=== PATIENT | female | born 1975 | race Two or more races ===

== ENCOUNTER 2016-06-23 16:37 | Inpatient (IN) | payer BC, OTHER ==
[~2016-06-23] VITALS: Ht 157.5 cm; Wt 47.6 kg
[~2016-06-23 16:37] MED LIST: Baclofen PO; CYAN100096 PO; DICY20TA28 PO; DOCU-25 PO; DULO60CA45 PO; FLUT1DIS28 IH; Gabapentin PO; HYDROCORTISONE CREAM TOP; KETO5DRO29 EACHEYE; MAGN400C PO; NORE1TAB93 PO; PROP10TA29 PO; TACR30OI4 TP; TRAZ-147 PO; triamcinolone 0.1% TP
--- NOTE | 2016-06-23 17:25 | NUR ---
PRE ASSESSMENT: TRIAGED PT IN INTAKE OFFICE. SHE REPORTS DRINKING VODKA 1 PINT DAILY X 1 WEEK. BP 126/80 P 124 R 16 T 98.7. SHE PRESENTS WITHDRAWN WITH DEPRESSED MOOD. SHE DENIES S/I AND H/I. SHE STATES SHE CANNOT STOP DRINKING ON HER OWN AND NEEDS HELP.SHE REPORTS 1 SEIZURE IN MARCH 2016 FROM ETOH W/D. [facility] AT [facility] IN APRIL 2016. SHE REPORTS MEDICAL HX OF DEPRESSION,ECZEMA,ENDOMETRIOSIS AND ASTHMA. MEDICATIONS BROUGHT FROM HOME.UDS PROVIDED. TEST ORDERED.
[2016-06-23 17:45] VITALS: BP 126/80
[2016-06-23 18:04] LABS: *AMPHETAMINE, URINE NEGATIVE (NEGATIVE); *BARBITURATE, URINE NEGATIVE (NEGATIVE); *CANNABINOID, URINE NEGATIVE (NEGATIVE); *COCCAINE, URINE NEGATIVE (NEGATIVE); *OPIATE, URINE NEGATIVE (NEGATIVE); *PHENCYCLIDINE SCREEN,URINE NEGATIVE (NEGATIVE)
[2016-06-23] MEDS ORDERED: HYDROXYZINE PAMOATE 25 MG CAPSULE PO PRN (18:15)
[2016-06-23] MEDS ORDERED: diphenhydrAMINE 50 MG CAPSULE PO PRN (18:15)
[2016-06-23] MEDS ORDERED: ACETAMINOPHEN 325 MG TABLET PO PRN (18:15)
[2016-06-23] MEDS ORDERED: THIAMINE HCL 200 MG/2 ML VIAL IM ONE (18:15)
[2016-06-23] MEDS ORDERED: CLONIDINE HCL 0.1 MG TABLET PO PRN (18:15)
[2016-06-23] MEDS ORDERED: DICYCLOMINE HCL 20 MG TABLET PO PRN (18:15)
[2016-06-23] MEDS ORDERED: LORAZEPAM 2 MG/1 ML VIAL IM PRN (18:15)
[2016-06-23] MEDS ORDERED: MIRALAX 17 GM POWD.PACK PO PRN (18:15)
[2016-06-23] MEDS ORDERED: LOPERAMIDE HCL 2 MG CAPSULE PO PRN ×2 (18:15)
[2016-06-23] MEDS ORDERED: MAG HYDROX/AL HYDROX/SIMETH 30 ML LIQUID UDC PO PRN (18:15)
[2016-06-23] MEDS ORDERED: MAGNESIUM HYDROXIDE 30 ML LIQUID UDC PO PRN (18:15)
[2016-06-23] MEDS ORDERED: LORAZEPAM 1 MG TABLET PO PRN ×2 (18:15)
[2016-06-23] MEDS ORDERED: ONDANSETRON 4 MG/2 ML VIAL IM PRN (18:15)
[2016-06-23 18:53] LABS: *URINE HCG, QUAL NEGATIVE (NEGATIVE)
[2016-06-23] MEDS ORDERED: PATIENT MAY USE OWN MED- MD OK TOP PRN (19:00)
[2016-06-23] MEDS ORDERED: LORAZEPAM 1 MG TABLET PO ONE (19:00)
[2016-06-23] MEDS ORDERED: DOCUSATE SODIUM 100 MG CAPSULE PO PRN (19:00)
[2016-06-23] MEDS ORDERED: PATIENT MAY USE OWN MED- MD OK EACHEYE PRN (19:00)
--- NOTE | 2016-06-23 19:20 | NUR ---
ONE TIME ATIVAN GIVEN PER MD. RUSS 8. WILL ENDORSE REASSESSMENT TO NIGHT NURSE.
[2016-06-23 20:00] VITALS: BP 137/88
--- NOTE | 2016-06-23 20:20 | NUR ---
ONE TIME ATIVAN REASSESSMENT Pt reports Ativan somewhat effective. Pt still observed to be anxious. CIWA:7. Breathing even and unlabored, safety measures in place. Will monitor.
[2016-06-23 21:05] LABS: BASOPHILS % (AUTO) 0.5 % (0.0-2.0); EOSINOPHILS # (AUTO) 0.2 K/uL (0.0-0.7); HEMATOCRIT 39.9 % (37-47); HEMOGLOBIN 13.4 G/DL (12.0-16.0); LYMPHOCYTES # (AUTO) 2.2 K/UL (0.8-4.8); LYMPHOCYTES % (AUTO) 27.3 % (20.5-51.5); MEAN CORPUSCULAR HEMOGLOBIN 30.1 UUG (27.0-31.0); MEAN CORPUSCULAR HGB CONC 34 g/dL (32.0-37.0); MEAN CORPUSCULAR VOLUME 89.9 FL (81.0-99.0); MONOCYTES # (AUTO) 0.4 K/UL (0.1-1.30); MONOCYTES % (AUTO) 5.1 % (0.0-11.0); NEUTROPHILS # (AUTO) 5.4 K/UL (1.8-8.9); NEUTROPHILS % (AUTO) 65.1 % (38.5-71.5); PLATELET COUNT (AUTO) 439 K/UL (150-450); RED BLOOD CELL COUNT(AUTO) 4.44 MIL/UL (4.2-5.4); RED CELL DISTRIBUTION WIDTH 12.6 % (11.5-14.5); WHITE BLOOD COUNT (AUTO) 8.2 K/UL (4.0-11.2)
[2016-06-23 21:25] LABS: ETHANOL 102 MG/DL (0-0)
[2016-06-23 21:33] LABS: ALANINE AMINOTRANSFERASE 19 U/L (14-59); ALBUMIN 3.9 g/dL (3.4-5.0); ALKALINE PHOSPHATASE 92 U/L (50-136); AMYLASE 63 U/L (25-115); ASPARTATE AMINOTRANSFERASE 24 U/L (15-37); BILIRUBIN,TOTAL 0.2 mg/dL (0.2-1.0); CALCIUM 9.2 mg/dL (8.5-10.1); CARBON DIOXIDE 26 mmol/L (21-32); CHLORIDE 99 mmol/L (98-107); GFR > 130 mL/min (>60); GLUCOSE 102 mg/dL (74-106); LIPASE 321 U/L (73-393); MAGNESIUM 2.1 mg/dL (1.8-2.4); POTASSIUM 4.3 mmol/L (3.5-5.1); SODIUM SERUM 139 mmol/L (136-145); UREA NITROGEN, BLOOD 13 mg/dL (7-18)
[2016-06-23 21:36] LABS: CREATININE 0.5 mg/dL (0.6-1.3)
[2016-06-23] MEDS ORDERED: LORAZEPAM 1 MG TABLET ONE (21:41)
[2016-06-23] MEDS: IBUPROFEN 400 MG TABLET PO PRN (21:41)
--- NOTE | 2016-06-23 21:41 | NUR ---
PRN MOTRIN Pt complains of headache 04/20. PRN Motrin administered as ordered. Safety measures in place. Will monitor effectiveness.
[2016-06-23 21:44] LABS: HIV-1 p24 ANTIGEN NON REACTIVE (NONREACTIVE); HIV-1/2 ANTIBODY NON REACTIVE (NONREACTIVE)
[2016-06-23] MEDS ORDERED: LORAZEPAM 1 MG TABLET PO SCH (22:00)
--- NOTE | 2016-06-23 22:41 | NUR ---
PRN MOTRIN REASSESSMENT PRN Motrin effective, pt reports that headache decreased to 2/10. Breathing even and unlabored, safety measures in place. Will monitor.
[2016-06-23] MEDS ORDERED: PROPRANOLOL HCL 20 MG TABLET PO ONE (23:45)
[2016-06-23] MEDS ORDERED: TRAZODONE 50 MG TABLET PO PRN (23:55)
[2016-06-24] VITALS (7 sets, daily range): BP systolic 117–141; BP diastolic 79–86
--- NOTE | 2016-06-24 00:04 | NUR ---
PRN TRAZODONE Pt complains of inability to sleep. PRN Trazodone administered as ordered. Respirations 16, breathing even and unlabored, safety measures in place. Will monitor effectiveness.
--- NOTE | 2016-06-24 00:04 | NUR ---
ONE TIME INDERAL One time order of Inderal administered per MD order. Pt's BP: 117/79 HR: 120. Will monitor and reassess.
[2016-06-24] MEDS ORDERED: PROPRANOLOL HCL 20 MG TABLET ONE (00:07)
--- NOTE | 2016-06-24 01:04 | NUR ---
ONE TIME INDERAL REASSESSMENT One time order effective. Pt's BP: 128/80 HR: 97. Breathing even and unlabored, safety measures in place. Will continue to monitor.
--- NOTE | 2016-06-24 01:04 | NUR ---
PRN TRAZODONE REASSESSMENT PRN Trazodone effective. Pt lying in bed with eyes closed noted to be asleep. Respirations 16, breathing is even and unlabored. Safety measures in place. Will continue to monitor.
--- NOTE | 2016-06-24 04:00 | NUR ---
CIWA DEFERRED CIWA deferred d/t order is Q4H while awake. Pt lying in bed with eyes closed noted to be asleep. Respirations 16. Breathing is even and unlabored. Safety measures in place. Will continue to monitor.
[2016-06-24] MEDS ORDERED: THIA100T13 GT (04:13)
[2016-06-24] MEDS ORDERED: LORA10TA50 PO (04:13)
[2016-06-24] MEDS ORDERED: PROBIOTICS (04:13)
[2016-06-24] MEDS ORDERED: AZIT250T6 PO (04:13)
[2016-06-24] MEDS ORDERED: TURM1CAP PO (04:13)
[2016-06-24] MEDS ORDERED: [UNRECOGNIZED DRUG - SUPPLY] (04:13)
[2016-06-24] MEDS ORDERED: IBUP-1482 PO (04:13)
[2016-06-24] MEDS ORDERED: MAGN500T17 PO (04:13)
[2016-06-24] MEDS ORDERED: [UNRECOGNIZED DRUG - SUPPLY] (04:13)
[2016-06-24] MEDS ORDERED: [UNRECOGNIZED DRUG - OTHER] (04:13)
[2016-06-24] MEDS ORDERED: BENZ9GEL2 MM (04:13)
[2016-06-24] MEDS ORDERED: CETI-102 PO (04:13)
--- NOTE | 2016-06-24 07:25 | NUR ---
END OF SHIFT Pt is a 40 year old female admitted on 06/23/16 for ETOH dependency. Pt is full code with NKA. At 2141 pt received PRN Motrin for headeache 04/20, and at 0004 she received PRN Trazodone. She slept a total of 4 hrs, Intake: 1479mL, void: x3, BM: 0. Pt remains alert and oriented x4, breathing is even and unlabored. Safety measures in place. Endorsed to oncoming shift.
--- NOTE | 2016-06-24 07:40 | NUR ---
START OF SHIFT Rcvd endorsement from night nurse, client is in room, she is A/Ox 4, she presents with anxious, irritable mood, fine tremors, she denies any WRAY, N/V/D at this time. She denies any SI/HI. Encouraged increased fluids as tolerated, to facilitating detox process. Encourage group attendance to improve coping skills. Client is a 40 year old female admitted on 06/23/16 for ETOH withdrawal. Full code, NKA, Regular diet. At 2141 client received PRN Motrin for headache 04/20; effective. 0004 she received PRN Trazodone for inability to sleep, she slept a total of 4 hrs. Last CIWA 6 @ 1999. She has history of induced seizure withdrawal (Mar 2016). Seizure precautions. Side rails x 2 up/padded. Bed in lowest/locked position. Call light within reach. Will continue plan of care.
--- NOTE | 2016-06-24 08:55 | NUR ---
NURSING NOTES Client reports headache 04/20 at frontal area, superficial. She refused any PRN meds at this time. Ludwig stated' " Addendum: 06/24/16 at 1027 by CHANTAL DENG RN She stated' "I will feel better, after I get my taper medication, but thank you." Will continue to monitor.
[2016-06-24] MEDS ORDERED: TUBERCULIN,PURIF.PROT.DERIV. 5 TU/0.1 ML TEST ID ONE (09:00)
[2016-06-24] MEDS: LORAZEPAM 1 MG TABLET PO SCH ×4 (09:17→20:27)
[2016-06-24] MEDS: LACTOBACILLUS RHAMNOSUS GG 1 EACH CAPSULE PO SCH ×2 (09:17→20:28)
[2016-06-24] MEDS: MULTIVITAMINS,THERAPEUTIC TABLET PO SCH (09:18)
[2016-06-24] MEDS: THIAMINE HCL 100 MG TABLET PO SCH (09:18)
[2016-06-24] MEDS: FOLIC ACID 1 MG TABLET PO SCH (09:18)
[2016-06-24] MEDS: CYANOCOBALAMIN 1,000 MCG TABLET PO SCH (09:18)
--- NOTE | 2016-06-24 09:19 | NUR ---
TB TEST ADMINISTERED TO L F/A, CLIENT TOLERATED WELL.
[2016-06-24] MEDS: PROPRANOLOL HCL 10 MG TABLET PO SCH ×2 (09:22→21:21)
[2016-06-24] MEDS: PATIENT MAY USE OWN MED- MD OK PO SCH (09:50)
[2016-06-24] MEDS: PATIENT MAY USE OWN MED- MD OK INH SCH (09:51)
[2016-06-24] MEDS: ONDANSETRON ODT 4 MG TAB.RAPDIS SL PRN (10:00)
--- NOTE | 2016-06-24 10:00 | NUR ---
PRN Zofran 4mg SL Client reports continuous nausea, no episodes of emesis. Zofran 4mg SL administered. Saltine crackers and jasvir barry offered. Will continue to monitor. Call light within reach.
--- NOTE | 2016-06-24 11:00 | NUR ---
Reassessment PRN Zofran 4mg SL Client reports relief from nausea, no episodes of emesis. Zofran 4mg effective. Call light within reach.
--- NOTE | 2016-06-24 11:10 | NUR ---
MD Lombardi notified the following test ECG for tachycardia Results Normal sinus rhythm Possible Left Atrial enlargement Left axia deviation RSR or QR pattern in V1 suggest right ventricular conduction delay. Abnormal ECG. NNO at this time, client is in bed resting.
[2016-06-24] MEDS ORDERED: FLUTICASONE PROP NASAL SPRAY 16 GM BOTTLE NS SCH (11:45)
[2016-06-24] MEDS: FLONASE NS SCH (13:09)
--- NOTE | 2016-06-24 19:15 | NUR ---
START OF SHIFT Received 40 year old female patient admitted on 06/23/16 for ETOH dependency. Pt is full code with NKA. She reports a PMHx of asthma, eczema, depression, endometriosis, and dissociative disorder. She reports drinking 1 pint of vodka daily for 1 week. Last dose was on 06/23/16. Per endorsement, she received PRN Zofran. Pt is alert and oriented x4. Breathing is even and unlabored. Pt safe with bed locked in lowest position, side rails up x2 and call light within reach. Will continue to monitor.
--- NOTE | 2016-06-24 19:34 | NUR ---
END OF SHIFT Endorsed to incoming nurse, client is a 40 year old female admitted on 06/23/16 for ETOH withdrawal. Pt is full code with NKA. PRN Zofran for nausea, noted effective. Adequate intake and output. Swetha is compliant with 2/3 of group therapy.Client remains alert and oriented x4, breathing is even and unlabored. Safety measures in place. Endorsed to oncoming shift.
[2016-06-24] MEDS: CETIRIZINE HCL 10 MG TABLET PO SCH (20:28)
[2016-06-24] MEDS ORDERED: THIAMINE HCL 200 MG/2 ML VIAL IM ONE (21:00)
[2016-06-24] MEDS: TRAZODONE 100 MG TABLET PO SCH (21:21)
[2016-06-24] MEDS: DULOXETINE 60 MG CAPSULE.DR PO SCH (21:21)
[2016-06-25] VITALS: BP 129/87
[2016-06-25] MEDS: IBUPROFEN 400 MG TABLET PO PRN ×3 (01:57→15:52)
--- NOTE | 2016-06-25 01:57 | NUR ---
PRN MOTRIN Pt complains of headache 08/20. PRN Motrin administered as ordered. Breathing even and unlabored, respirations 16. Safety measures in place. Will monitor effectiveness.
--- NOTE | 2016-06-25 02:57 | NUR ---
PRN MOTRIN REASSESSMENT PRN Motrin effective. Pt lying in bed with eyes closed ntoed to be asleep. Respirations 16, breathing even and unlabored. No facial grimacing noted. Safety measures in place. Will continue to monitor.
[2016-06-25 04:00] VITALS: BP 125/83
--- NOTE | 2016-06-25 07:14 | NUR ---
END OF SHIFT Pt is a 40 year old female patient admitted on 06/23/16 for ETOH dependency. Pt is full code with NKA. She reports a PMHx of asthma, eczema, depression, endometriosis, and dissociative disorder. At 0157 pt received PRN Motrin d/t headache 06/20. Pt slept a total of 8 hrs, Intake: 800 mL, Void: x1, BM:0. CIWA: 7. Pt remains alert and oriented x4. Breathing is even and unlabored. Pt safe with bed locked in lowest position, side rails up x2 and call light within reach. Will endorse to oncoming shift.
--- NOTE | 2016-06-25 07:25 | NUR ---
Start Of Shift Patient Received from overnight babysitter nurse. Pt is a 40 year old female patient admitted for ETOH dependency. Pt is full code regular diet on fall and seizure precautions denies any food or drug allergies. Pt continues the 5 day Ativan taper and tolerating well. She reports a PMHx of asthma, eczema, depression, endometriosis, and dissociative disorder. Pt received PRN Motrin for a headache which was effective per overnight babysitter nurse. Pt slept a total of 8 hrs last night. Pt stated that she was not able to sleep well last night and that she was tossing and turning pt encouraged fluids to facilitate with detox treatment. Her Last CIWA: 7 taken at 0400. All safety measures in place, call light within reach, bed in lowest locked position, will continue to monitor and provide care.
[2016-06-25 08:00] VITALS: BP 135/98
--- NOTE | 2016-06-25 08:13 | NUR ---
PRN MEDICATION Pt c/o tooth pain rating it 5/10 requested something for relief, non-pharmacological techniques interventions provided x3 and were not effective. PRN Motrin 600mg administered PO, educated pt about s/e of medication and when to contact nurse. all needs met, all safety measures in place, will continue to monitor.
[2016-06-25 08:23] LABS: THYROID STIMULATING HORMONE 1.435 mIU/mL (0.358-3.740)
[2016-06-25] MEDS: FLONASE NS SCH (08:37)
[2016-06-25] MEDS: PATIENT MAY USE OWN MED- MD OK INH SCH (08:37)
[2016-06-25] MEDS: LACTOBACILLUS RHAMNOSUS GG 1 EACH CAPSULE PO SCH ×2 (08:38→20:23)
[2016-06-25] MEDS: PATIENT MAY USE OWN MED- MD OK PO SCH (08:38)
[2016-06-25] MEDS: THIAMINE HCL 100 MG TABLET PO SCH (08:42)
[2016-06-25] MEDS: PROPRANOLOL HCL 10 MG TABLET PO SCH ×2 (08:42→20:26)
[2016-06-25] MEDS: FOLIC ACID 1 MG TABLET PO SCH (08:43)
[2016-06-25] MEDS: CYANOCOBALAMIN 1,000 MCG TABLET PO SCH (08:43)
[2016-06-25] MEDS: MULTIVITAMINS,THERAPEUTIC TABLET PO SCH (08:43)
[2016-06-25 08:44] LABS: ALANINE AMINOTRANSFERASE 19 U/L (14-59); ALBUMIN 3.2 g/dL (3.4-5.0); ALKALINE PHOSPHATASE 86 U/L (50-136); ASPARTATE AMINOTRANSFERASE 25 U/L (15-37); BILIRUBIN,DIRECT 0.1 mg/dL (0.0-0.2); BILIRUBIN,TOTAL 0.6 mg/dL (0.2-1.0); CALCIUM 9.3 mg/dL (8.5-10.1); CARBON DIOXIDE 29 mmol/L (21-32); CHLORIDE 101 mmol/L (98-107); GFR > 130 mL/min (>60); GLUCOSE 113 mg/dL (74-106); PHOSPHOROUS 5.5 mg/dL (2.5-4.9); POTASSIUM 4.2 mmol/L (3.5-5.1); SODIUM SERUM 137 mmol/L (136-145); TOTAL PROTEIN, SERUM 7.5 g/dL (6.4-8.2); UREA NITROGEN, BLOOD 8 mg/dL (7-18)
[2016-06-25 08:49] LABS: CREATININE 0.5 mg/dL (0.6-1.3)
[2016-06-25] MEDS ORDERED: LORAZEPAM 1 MG TABLET PO SCH (09:00)
--- NOTE | 2016-06-25 09:13 | NUR ---
PRN REASSESSMENT Upon reassessment medication noted to be effective pt reported a decrease in pain to 1/10. Instructed pt to contact nurse if pain reoccurred. All needs met, all safety measures in place will continue to monitor.
[2016-06-25 12:00] VITALS: BP 130/89
[2016-06-25] MEDS: LORAZEPAM 1 MG TABLET PO SCH ×3 (13:24→20:23)
[2016-06-25] MEDS: ONDANSETRON ODT 4 MG TAB.RAPDIS SL PRN (15:52)
--- NOTE | 2016-06-25 15:52 | NUR ---
PRN MEDICATION Pt c/o tooth pain rating it 5/10 and nausea pt denied having any vomiting but states that she is nauseated and requested something for relief, non-pharmacological techniques interventions provided x3 and were not effective. PRN Motrin and Zofran 4mg Provided, educated pt about s/e of medication and when to contact nurse. all needs met, all safety measures in place, will continue to monitor.
[2016-06-25 16:00] VITALS: BP 119/81
--- NOTE | 2016-06-25 16:55 | NUR ---
CT WITHOUT CONTRAST Upon assessment Dr. Lombardi placed an order for a CT scan of pt's left side of the face d/t possible abscess, admissions contacted face sheet and MD order physically given to personnel in admissions. Pt is scheduled for procedure tomorrow at 0630/0700, will endorse to academic associate nurse.
--- NOTE | 2016-06-25 16:58 | NUR ---
PRN REASSESSMENT Upon reassessment medication noted to be effective pt reported a decrease in pain to 1/10 pt also reported that her nausea is "completely gone". Instructed pt to contact nurse if pain or nausea reoccurred. All needs met, all safety measures in place will continue to monitor.
--- NOTE | 2016-06-25 18:00 | NUR ---
I. D. Evaluation Pt was evaluated by Chana PUBLIC HEALTH NUTRITIONIST infectious disease. Upon evaluation an order for IV antibiotic was placed. Chana stated to start the IV at 19:30/20:00. will endorse to assembler 1st shift nurse.
[2016-06-25] MEDS: PIPERACILLIN/TAZOBACTAM/D5W 50 ML IV SCH (19:00)
--- NOTE | 2016-06-25 19:30 | NUR ---
START OF SHIFT NOTE : Pt is a 40 year old female patient admitted for ETOH dependency. Pt is full code regular diet on fall and seizure precautions denies any food or drug allergies. Pt continues the 5 day Ativan taper and tolerating well. She reports a PMHx of asthma, eczema, depression, endometriosis, and dissociative disorder. Pt. encouraged fluids to facilitate with detox treatment. IV placed to RAC by STATUARY PAINTER, good blood return, Zosyn IVPB and Vancomycin IVPB started as ordered, no reactions observed. All safety measures in place, call light within reach, bed in lowest locked position, will continue to monitor and provide care.
--- NOTE | 2016-06-25 19:33 | NUR ---
End Of Shift Endorsed report to rn shift mgr nurse. Patient is AOX4. Pt is a 40 year old female patient admitted for ETOH dependency. Pt is full code regular diet on fall and seizure precautions denies any food or drug allergies. Pt continues the 5 day Ativan taper and tolerating well. She reports a PMHx of asthma, eczema, depression, endometriosis, and dissociative disorder. Skin intact. Pt remains compliant with the treatment plan. Patient encouraged adequate PO fluid intake as tolerated. Upon assessment patient presented with mild anxiety some sweats and minor tremors, her last CIWA score was 6 @1600. Detox medication effective at reducing withdrawal symptoms. Patient encouraged to attend group therapies/sessions to learn new coping skills to recent relapse, patient denies SI/HI. Pt ate all of her meals her total fluid intake was 2315ml with 5 void and 0 bowel movement. Pt received PRN Motrin 400mg X2 and Zofran 4mg PRN medication effective. Pt is to start IV antibiotics d/t her abscess on left side of her face, pt is also having a CT without contrast done tomorrow around 0630/0700, face sheet and order given to admissions. Safety measures in place. Call light kept within reach. Patient endorsed to rn shift mgr nurse, all pertinent information discussed.
[2016-06-25 20:00] VITALS: BP 134/79
[2016-06-25] MEDS: DULOXETINE 60 MG CAPSULE.DR PO SCH (20:23)
[2016-06-25] MEDS: CETIRIZINE HCL 10 MG TABLET PO SCH (20:23)
[2016-06-25] MEDS: TRAZODONE 100 MG TABLET PO SCH (20:23)
[2016-06-25] MEDS: VANCOMYCIN IV 1 G in PREMIXED 0 EACH IV SCH (21:00)
[2016-06-25] MEDS ORDERED: LEVOFLOXACIN 750 MG TABLET PO SCH (21:00)
--- NOTE | 2016-06-25 23:00 | NUR ---
PRN MOTRIN Pt complains of headache 08/20. PRN Motrin administered as ordered. Breathing even and unlabored, respirations 16. Safety measures in place. Will monitor effectiveness.
--- NOTE | 2016-06-25 23:55 | NUR ---
PRN MOTRIN REASSESSMENT PRN Motrin effective, pain level is 2/10. Pt lying in bed with eyes closed ntoed to be asleep. Respirations 16, breathing even and unlabored. No facial grimacing noted. Safety measures in place. Will continue to monitor.
[2016-06-26 04:00] VITALS: BP 95/52
[2016-06-26] MEDS: PIPERACILLIN/TAZOBACTAM/D5W 50 ML IV SCH ×4 (06:09→20:36)
--- NOTE | 2016-06-26 06:51 | NUR ---
END OF SHIFT NOTE : Pt is a 40 year old female patient admitted for ETOH dependency. Pt is full code regular diet on fall and seizure precautions denies any food or drug allergies. Pt continues the 5 day Ativan taper and tolerating well. She reports a PMHx of asthma, eczema, depression, endometriosis, and dissociative disorder. Pt. encouraged fluids to facilitate with detox treatment.New IV placed to BOBY by VEHICLE SALES PROFESSIONAL, good blood return, Zosyn IVPB cont. as ordered, no reactions observed. Pt remains compliant with the treatment plan. PRN MOTRIN given during my shift. V/S remain WNL. RR=16, even and unlabored, lungs clear upon auscultation, abdomen soft and non- distended. Pt denies nausea, vomiting and diarrhea. LAST CIWA=3 at 0400 , INTAKE=2,815 ml, voided x 2, slept 7 hours. Safety measures in place : bed on lowest position with side rails x2 up for safety, call light within reach. Will continue to monitor closely and offer help.
[2016-06-26 07:23] LABS: BASOPHILS % (AUTO) 0.5 % (0.0-2.0); EOSINOPHILS # (AUTO) 0.3 K/uL (0.0-0.7); HEMATOCRIT 37.7 % (37-47); HEMOGLOBIN 13.1 G/DL (12.0-16.0); LYMPHOCYTES # (AUTO) 1.7 K/UL (0.8-4.8); LYMPHOCYTES % (AUTO) 19.1 % (20.5-51.5); MEAN CORPUSCULAR HEMOGLOBIN 31.4 UUG (27.0-31.0); MEAN CORPUSCULAR HGB CONC 35 g/dL (32.0-37.0); MEAN CORPUSCULAR VOLUME 90.2 FL (81.0-99.0); MONOCYTES # (AUTO) 0.4 K/UL (0.1-1.30); MONOCYTES % (AUTO) 4.8 % (0.0-11.0); NEUTROPHILS # (AUTO) 6.3 K/UL (1.8-8.9); NEUTROPHILS % (AUTO) 71.6 % (38.5-71.5); PLATELET COUNT (AUTO) 324 K/UL (150-450); RED BLOOD CELL COUNT(AUTO) 4.18 MIL/UL (4.2-5.4); RED CELL DISTRIBUTION WIDTH 12.5 % (11.5-14.5); WHITE BLOOD COUNT (AUTO) 8.7 K/UL (4.0-11.2)
[2016-06-26 07:41] LABS: CALCIUM 9.2 mg/dL (8.5-10.1); CREATININE 0.6 mg/dL (0.6-1.3); MAGNESIUM 1.9 mg/dL (1.8-2.4); PHOSPHOROUS 5.8 mg/dL (2.5-4.9); POTASSIUM 4.3 mmol/L (3.5-5.1)
--- NOTE | 2016-06-26 07:55 | NUR ---
BEGINNING OF SHIFT Patient endorsement report received from security shift supervisor nurse, all pertinent information discussed. patient is a 40 year old female admitted on 06/23/2016 with admitting Dx: ETOH dependence. Patient continues on 5 day Ativan taper as ordered and is currently to begin day 3 of taper. as per security shift supervisor received: Motrin for toothache,medication was effective. Per security shift supervisor patient to have CT scan of head with contrast today d/t left upper teeth inflammation. Procedure pending. Patient slept for 7 hours. Patient received awake, alert and oriented x4, educated regarding plan of care for the day and medication regimen. safety measures in place. call light kept with in reach, will continue to monitor.
[2016-06-26 08:06] LABS: HCV AB <0.1 s/co ratio (0.0-0.9); HEPATITIS B CORE AB, IgM Negative (Negative); HEPATITIS B SURFACE AG Negative (Negative)
[2016-06-26 08:39] VITALS: BP 128/74
[2016-06-26] MEDS: PATIENT MAY USE OWN MED- MD OK INH SCH (08:41)
[2016-06-26] MEDS: FLONASE NS SCH (08:41)
[2016-06-26] MEDS: LORAZEPAM 1 MG TABLET PO SCH ×3 (08:42→21:37)
[2016-06-26] MEDS: PATIENT MAY USE OWN MED- MD OK PO SCH (08:42)
[2016-06-26] MEDS: FOLIC ACID 1 MG TABLET PO SCH (08:42)
[2016-06-26] MEDS: MULTIVITAMINS,THERAPEUTIC TABLET PO SCH (08:43)
[2016-06-26] MEDS: PROPRANOLOL HCL 10 MG TABLET PO SCH ×2 (08:43→21:37)
[2016-06-26] MEDS: THIAMINE HCL 100 MG TABLET PO SCH (08:43)
[2016-06-26] MEDS: CYANOCOBALAMIN 1,000 MCG TABLET PO SCH (08:43)
[2016-06-26] MEDS: LACTOBACILLUS RHAMNOSUS GG 1 EACH CAPSULE PO SCH ×2 (08:43→21:37)
[2016-06-26] MEDS: IBUPROFEN 400 MG TABLET PO PRN (08:57)
--- NOTE | 2016-06-26 08:57 | NUR ---
PRN MOTRIN Patient c/o pain 4/10, toothache, administered motrin as ordered, will monitor effectiveness of medication.
[2016-06-26] MEDS ORDERED: LORAZEPAM 1 MG TABLET PO SCH (09:00)
--- NOTE | 2016-06-26 09:30 | NUR ---
CT SCAN OFF THE UNIT Patient off the unit at [address] scan procedure.
--- NOTE | 2016-06-26 09:57 | NUR ---
MOTRIN REASSESSMENT-RETURNED FROM CT SCAN Patient reports medication effective, encouraged adequate PO fluid intake as tolerated, will continue to monitor. Patient also returned from CT scan, in stable condition, will continue to monitor closely.
--- NOTE | 2016-06-26 14:10 | NUR ---
Clinical Pharmacy Note: Vancomycin Dosing per Pharmacy Subjective: Vancomycin IV to continue on this 40 yo female patient for L facial cellulitis ?dental abscess ?sinusitis (per ID note) Objective: BUN 10/Scr 0.6 WBC 8.7 Temperature 98.2 ht 5'2'' wt 105 lb Assessment/Plan: Will continue same dose of vancomycin 1000mg IVPB Q16hr for today. Second dose is due today at 1300. Will draw a vancomycin trough level prior to the 4th dose of vancomycin (not ordered yet). Will monitor renal function and adjust vancomycin dose, if needed, should renal function change significantly. Will follow daily.
[2016-06-26 14:24] VITALS: BP 125/69
[2016-06-26] MEDS: IBUPROFEN 800 MG TABLET PO PRN ×2 (14:26→22:15)
[2016-06-26] MEDS: VANCOMYCIN IV 1 G in PREMIXED 0 EACH IV SCH (16:19)
[2016-06-26 17:46] VITALS: BP 117/79
--- NOTE | 2016-06-26 19:02 | NUR ---
END OF SHIFT Patient alert and oriented x4, vital signs stable during shift. Patient with admitting Dx: etoh dependence and continues on Ativan taper as ordered and is currently on day 3 of taper, well tolerated, no ASE noted. 0900 assessment patient presented with: fine tremors, barely sweating and anxiety with ciw score of: 7. 1300 assessment patient presented with: fine tremors, barely sweating and mild anxiety with ciwa score of: 4. 1700 assessment patient presented with: fine tremors, and anxiety with ciwa score of: 6.During shift patient had a CT scan of the head, Dr. Lombardi is aware of the results, as per Md patient to have ENT consult patient is aware. Dr. Lombardi explained CT scan results to patient with good verbal understanding. Patient was administered PRN: Motrin, twice during shift as ordered., medication effective one hour post administration. Patient continues on IV ATB therapy as ordered, medication administration done by staffing branch manager. ATB well tolerated, no ASE noted. Patient afebrile during shift. Patients IV site left arm intact and patent, no s/sx of infx/infiltration noted. Area kept clean and dry. Patient encouraged adequate PO fluid intake as tolerated. Encouraged to attend group therapies/sessions to learn new coping skills to prevent relapse, noted attending and participating. denies any SI/HI. Safety measures in place. call light kept with in reach. all needs met and rendered. patient endorsed to control engineer nurse, all pertinent information discussed.
--- NOTE | 2016-06-26 19:35 | NUR ---
RN note Zosyn due at 1900 Pt requested for IV Zosyn to be administered "later" despite explanation of risks and benefits.
[2016-06-26 20:00] VITALS: BP 127/86
--- NOTE | 2016-06-26 20:00 | NUR ---
Start of Shift Patient is a 40-year old, female, admitted for ETOH dependence. With PMHx of PTSD, Endometriosis, Dissociative Identity Disorder and Alcohol Withdrawal Induced Seizures. Pt placed on a 5-day Ativan taper, started 06/24/2016, and tolerates well. No adverse side effects noted. With IV access on the Left UA #22, patent and intact. Saline Flush done, no resistance noted. CT scan of the face done today, with result relayed to the patient by Dr. Lombardi. Pt currently on IV Abx Zosyn and Vancocin. Patient is AAOx4 and with mild anxiety noted at this time. No SOB observed. Pt is ambulatory with steady gait, with no skin issues. Fall, universal and safety prec in place. Call light within reach. All needs met. Kept pt warm, dry and comfortable. Latest CIWA=5. Will continue to monitor pt.
[2016-06-26] MEDS: CETIRIZINE HCL 10 MG TABLET PO SCH (21:36)
[2016-06-26] MEDS: PATIENT MAY USE OWN MED- MD OK NS SCH (21:36)
[2016-06-26] MEDS: DULOXETINE 60 MG CAPSULE.DR PO SCH (21:37)
[2016-06-26] MEDS: TRAZODONE 100 MG TABLET PO SCH (21:37)
[2016-06-26] MEDS: DOCUSATE SODIUM 100 MG CAPSULE PO SCH (21:37)
--- NOTE | 2016-06-26 22:16 | NUR ---
RN note Motrin Pt c/o left facial pain=07/21. Administered Motrin 800 mg PO as ordered. Will reassess.
--- NOTE | 2016-06-26 23:20 | NUR ---
RN note reassess Pt verbalized pain level=3/10. Per pt, she is able to tolerate this pain level. No SOB noted. Will continue to monitor.
[2016-06-27] VITALS: BP 115/82
[2016-06-27] MEDS: PIPERACILLIN/TAZOBACTAM/D5W 50 ML IV SCH ×4 (00:13→19:08)
[2016-06-27 04:00] VITALS: BP 118/80
[2016-06-27] MEDS: VANCOMYCIN IV 1 G in PREMIXED 0 EACH IV SCH ×2 (05:29→21:00)
--- NOTE | 2016-06-27 07:21 | NUR ---
End of Shift Patient is a 40-year old, female, admitted for ETOH dependence. With PMHx of PTSD, Endometriosis, Dissociative Identity Disorder and Alcohol Withdrawal Induced Seizures. Pt placed on a 5-day Ativan taper, started 06/24/2016, and tolerates well. No adverse side effects noted. With IV access on the Left UA #22, patent and intact. Saline Flush done, no resistance noted. CT scan of the face done today, with result relayed to the patient by Dr. Lombardi. Pt currently on IV Abx Zosyn and Vancocin. Patient is AAOx4 and with mild anxiety noted at this time. No SOB observed. Pt is ambulatory with steady gait, with no skin issues. Fall, universal and safety prec in place. Call light within reach. All needs met. Kept pt warm, dry and comfortable. Latest CIWA=3, slept for 4 hours. Endorsed to AM shift nurse for continuity of care.
--- NOTE | 2016-06-27 07:43 | NUR ---
START OF SHIFT NOTE: Received report from table games shift manager nurse. Patient is a 40-year old, female, admitted for 06-23-16 for ETOH dependence. Pt placed on a 5 day Ativan taper. Tolerating well. Pt has IV #22g LFA. Patent. No evidence of infiltration. Pt is alert and oriented X4. Color good, skin warm and dry. Respirations even and unlabored. Safety precautions observed. Call light within reach. Will continue to monitor.
[2016-06-27 08:00] VITALS: BP 113/78
[2016-06-27] MEDS: IBUPROFEN 800 MG TABLET PO PRN (08:24)
[2016-06-27] MEDS: THIAMINE HCL 100 MG TABLET PO SCH (08:24)
[2016-06-27] MEDS: LACTOBACILLUS RHAMNOSUS GG 1 EACH CAPSULE PO SCH ×2 (08:25→21:10)
[2016-06-27] MEDS: CYANOCOBALAMIN 1,000 MCG TABLET PO SCH (08:25)
[2016-06-27] MEDS: PROPRANOLOL HCL 10 MG TABLET PO SCH ×2 (08:25→21:09)
[2016-06-27] MEDS: MULTIVITAMINS,THERAPEUTIC TABLET PO SCH (08:25)
[2016-06-27] MEDS: LORAZEPAM 1 MG TABLET PO SCH ×2 (08:25→21:00)
[2016-06-27] MEDS: FOLIC ACID 1 MG TABLET PO SCH (08:25)
[2016-06-27] MEDS: PATIENT MAY USE OWN MED- MD OK NS SCH ×2 (08:26→21:10)
[2016-06-27] MEDS: PATIENT MAY USE OWN MED- MD OK INH SCH (08:26)
[2016-06-27] MEDS: PATIENT MAY USE OWN MED- MD OK PO SCH (08:32)
[2016-06-27] MEDS ORDERED: CHOLECALCIFEROL 1,000 UNIT TABLET PO SCH (09:00)
[2016-06-27] MEDS ORDERED: LORAZEPAM 1 MG TABLET PO SCH (09:00)
--- NOTE | 2016-06-27 09:00 | NUR ---
VSS CIWA 9 c/o tremors and anxiety Motrin 800mg po prn given for facial pain.
--- NOTE | 2016-06-27 10:00 | NUR ---
Pt states Motrin 800mg po prn helped with facial pain.
[2016-06-27 13:05] VITALS: BP 125/80
--- NOTE | 2016-06-27 15:24 | NUR ---
PRN TYLENOL Pt c/o 5/10 mouth pain and headache. PRN Tylenol administered as ordered. Primary nurse to reassess.
[2016-06-27] MEDS ORDERED: KETOROLAC TROMETHAMINE 30 MG INJ IM ONE (15:45)
--- NOTE | 2016-06-27 16:10 | NUR ---
Pt states Tylenol "didn't do anything for my pain." Toradol 30mg Im prn administered for mouth pain.
--- NOTE | 2016-06-27 16:25 | NUR ---
Clinical Pharmacy Note: Vancomycin Dosing per Pharmacy Subjective: Vancomycin IV to continue on this 40 yo female patient for L facial cellulitis ?dental abscess ?sinusitis (per ID note) Objective: BUN 10/Scr 0.6 (06/26) WBC 8.7 (06/26) Temperature 98.1 ht 5'2'' wt 105 lb Assessment/Plan: Will continue same dose of vancomycin 1000mg IVPB Q16hr for today. Since second dose yesterday was given late/off schedule, may affect steady state, trough ordered before 5th dose due tomorrow 06/28 @1230. Will check trough and adjust as necessary.. Will monitor renal function and adjust vancomycin dose, if needed, should renal function change significantly. Will follow daily.
--- NOTE | 2016-06-27 16:51 | NUR ---
Pt states Toradol prn helped with mouth and facial pain. Went from 09/20 to 06/20
[2016-06-27 17:58] VITALS: BP 130/87
--- NOTE | 2016-06-27 18:38 | NUR ---
END OF SHIFT NOTES: Report given to manager night nurse. Patient is a 40-year old, female, admitted for 06-23-16 for ETOH dependence. Pt placed on a 5 day Ativan taper. Tolerating well. Pt has IV #22g BOBY. Patent. No evidence of infiltration. Pt is alert and oriented X4. Color good, skin warm and dry. Respirations even and unlabored. Pt received Motrin 800mg po prn @ 0800 and Tylenol 650mg po prn @ 1530. Toradol 30mg IM prn @ 1600.Vital signs have remained stable throughout shift. Last CIWA 4 @ 1700. Safety precautions observed. Call light within reach.
--- NOTE | 2016-06-27 19:15 | NUR ---
START OF SHIFT Received 40 year old female patient admitted on 06/23/16 for ETOH dependency. Pt is full code with NKA. She reports a PMHx of asthma, eczema, depression, endometriosis, and dissociative disorder. Pt reports drinking vodka 1 pint daily for 1 week. Last dose was 06/23/16. She was placed on 5 day Ativan taper and tolerating well. Per endorsement, pt received PRN Toradol, Tylenol and Motrin. She is also on IV ATB forl eft upper teeth inflammation. She has a 22 gauge IV to left upper arm patent and flushing well. Pt is alert and oriented x4, breathing is even and unlabored. Pt safe with bed locked in lowest position, side rails up x2 and call light within reach. Will continue to monitor.
--- NOTE | 2016-06-27 20:08 | NUR ---
NURSING NOTE Pt reports pain at IV site. Pt noted with infiltration to left arm at IV site. Cool to touch. IV removed, IV catheter intact. Pressure dressing applied, educated pt on elevating arm. Pt verbalized understanding. Breathing even and unlabored. Safety measures in place. Will monitor.
[2016-06-27] MEDS: TRAZODONE 100 MG TABLET PO SCH (21:00)
[2016-06-27] MEDS: CETIRIZINE HCL 10 MG TABLET PO SCH (21:00)
[2016-06-27 21:09] VITALS: BP 138/76
[2016-06-27] MEDS: DULOXETINE 60 MG CAPSULE.DR PO SCH (21:09)
[2016-06-27] MEDS: DOCUSATE SODIUM 100 MG CAPSULE PO SCH (21:09)
--- NOTE | 2016-06-27 21:50 | NUR ---
AMA NOTE Pt stated that she wanted to leave AMA d/t agitation and non-compliance with treatment plan. Pt educated about the risks and consequences of leaving AMA, pt verbalized understanding but still requested to leave. Multiple staff member spoke with pt without any success. VS are WNL, pt denies any suicidal/homicidal ideations, skin intact. Dr. Lombardi made aware. Pt was given a list of community resources in case she is in need of help. All belongings returned to pt. Pt left facility on 06/27/16 at 2150.
[2016-06-28] MEDS ORDERED: LORAZEPAM 1 MG TABLET PO SCH (09:00)
== END 2016-06-27 21:50 | disposition left against medical advice (07) | DRG 894 ==
LOC: SRC 16:37
PROVIDERS: ADMIT Internal Medicine; ATTEND Internal Medicine
PROC: HZ2ZZZZ Detoxification Services for Substance Abuse Treatment (ICD-10-PCS; principal; 2016-06-23)
PROC: HZ41ZZZ Group Counseling for Substance Abuse Treatment, Behavioral (ICD-10-PCS; 2016-06-24)
PROC: HZ31ZZZ Individual Counseling for Substance Abuse Treatment, Behavioral (ICD-10-PCS; 2016-06-26)
DX: F10.230 Alcohol dependence with withdrawal, uncomplicated (principal); L03.211 Cellulitis of face; F10.220 Alcohol dependence with intoxication, uncomplicated; Y90.9 Presence of alcohol in blood, level not specified; F32.9 Major depressive disorder, single episode, unspecified; G25.0 Essential tremor; E07.81 Sick-euthyroid syndrome; F44.9 Dissociative and conversion disorder, unspecified; F17.210 Nicotine dependence, cigarettes, uncomplicated; J45.909 Unspecified asthma, uncomplicated; F43.10 Post-traumatic stress disorder, unspecified; Z83.3 Family history of diabetes mellitus; Z82.49 Family history of ischemic heart disease and other diseases of the circulatory system; Z81.1 Family history of alcohol abuse and dependence; R93.8 Abnormal findings on diagnostic imaging of other specified body structures; J32.8 Other chronic sinusitis; E55.9 Vitamin D deficiency, unspecified; N80.9 Endometriosis, unspecified; E88.09 Other disorders of plasma-protein metabolism, not elsewhere classified; G47.00 Insomnia, unspecified
CPT/HCPCS: 36415; 70030-TC; 80307; 82306; 83690; 83735; 84100; 84443; 84703; 85025; 86592; 86705; 86803; 87340; 87806; 93005; A4217; G6040-TC; J1885; J2543; J3370; J3411; J3535; Q0162

== ENCOUNTER 2016-06-26 06:43 | Outpatient (CLI) | payer BC ==
[~2016-06-26 06:43] MED LIST changes: +AZIT250T6 PO; +BENZ9GEL2 MM; +CETI-102 PO; +IBUP-1482 PO; +LORA10TA50 PO; +MAGN500T17 PO; +PROBIOTICS; +THIA100T13 GT; +TURM1CAP PO; +[UNRECOGNIZED DRUG - OTHER]; +[UNRECOGNIZED DRUG - SUPPLY]; +[UNRECOGNIZED DRUG - SUPPLY]
== END 2016-06-26 23:59 | disposition other institution (70) ==
LOC: CT 06:43
PROVIDERS: ATTEND Internal Medicine
DX: J32.8 Other chronic sinusitis (principal); R22.0 Localized swelling, mass and lump, head; R94.8 Abnormal results of function studies of other organs and systems; L02.91 Cutaneous abscess, unspecified
CPT/HCPCS: 70486